=== PATIENT | female | born 1975 | race Caucasian/White ===

== ENCOUNTER 2017-07-08 17:01 | Emergency (ER) | payer OTHER ==
[2017-07-08] MEDS ORDERED: Sodium Chloride 0.9% 1,000 ML IV ONE (17:03)
[2017-07-08] MEDS ORDERED: Famotidine 20 MG/2 ML SDV IVPUSH ONE (17:03)
[2017-07-08] MEDS ORDERED: methylPREDNISolone Sodium Succinate 125 MG/2 ML SDV IVPUSH ONE (17:03)
[2017-07-08] MEDS ORDERED: EPINEPHrine 1 MG/ML SDV IM ONE (17:05)
[2017-07-08] MEDS ORDERED: Albuterol/Ipratropium 3.0-0.5 MG/3 ML Neb Soln NEB ONE (17:05)
[2017-07-08] MEDS ORDERED: EPINEPHrine 1 MG/ML SDV SUBCUT ONE (17:11)
[2017-07-08 17:25] VITALS: BP 129/100
--- NOTE | 2017-07-08 17:56 | EDM.PDOC ---
ED HPI GENERAL MEDICAL PROBLEM - General Chief Complaint: Allergic Reaction Stated Complaint: BEE STING Time Seen by Provider: 07/08/17 17:45 Source of Information: Reports: Patient, EMS History Limitations: Reports: No Limitations - History of Present Illness INITIAL COMMENTS - FREE TEXT/NARRATIVE: Hemalatha is an otherwise healthy 41 year old female who presents to the ED today with c/o sob, throat swelling and full body hives after being stung in the right arm by a bee. Patient has known severe anaphylaxis, she did give herself IM epi prior to EMS arrival. Patient was wheezing on EMS arrival and given another IM epi followed by IV bendaryl, 50 mg. Patient arrives here tremulous, full body hives but reported to be improved from initially. Patient denies on arrival any sob, she is not wheezing, she denies any airway swelling. 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: Social & Family History - Tobacco Use Smoking Status *Q: Never Smoker - Caffeine Use Caffeine Use: Reports: Coffee - Recreational Drug Use Recreational Drug Use: No ED ROS ALLERGIC REACTION - Review of Systems Review Of Systems: See Below Constitutional: Reports: Diaphoresis HEENT: Reports: Throat Swelling Respiratory: Reports: Shortness of Breath Cardiovascular: Reports: No Symptoms Endocrine: Reports: No Symptoms GI/Abdominal: Reports: No Symptoms : Reports: No Symptoms Musculoskeletal: Reports: No Symptoms Skin: Reports: No Symptoms Neurological: Reports: No Symptoms Psychiatric: Reports: Anxiety Immunologic: Reports: Anaphylaxis ED EXAM GENERAL NO PERIP PULSE - Physical Exam Exam: See Below Exam Limited By: No Limitations General Appearance: Alert, Anxious Nose: Normal Inspection Throat/Mouth: Normal Oropharynx, No Airway Compromise Head: Atraumatic, Normocephalic Neck: Normal Inspection, Supple, Non-Tender Respiratory/Chest: Lungs Clear, Normal Breath Sounds, Chest Non-Tender, Other ( tachypneic) Cardiovascular: Normal Peripheral Pulses, Regular Rate, Rhythm, Tachycardia GI/Abdominal: Normal Bowel Sounds Extremities: Normal Inspection Neurological: Alert, Oriented, CN II-XII Intact Psychiatric: Anxious Skin Exam: Warm, Dry, Erythema Lymphatic: No Adenopathy Course - Vital Signs Last Recorded V/S: Last Vital Signs Temp 36.8 C 07/08/17 17:01 Pulse 97 07/08/17 17:20 Resp 26 H 07/08/17 17:20 BP 129/100 H 07/08/17 17:20 Pulse Ox 94 L 07/08/17 17:20 Hemalatha is an otherwise healthy 41 year old female who presents with anaphylaxis secondary to bee sting. Patient shortly after arrival here received an additional subcutaneous epi here after reporting her throat started to feel swollen again, she also c/o mild sob. Patient was given IV solumedrol and IV pepcid on arrival. Patient was also given a Duoneb. She did not have any wheezing at the time. Patient again started to c/o tongue tingling and swelling, epi drip initated at 1740 at 5 mcg/min. We are out of ICU beds here, patient requested [facility], they are full as well. [facility] accepted patient, Dr. Berumen. She will be transferred to their ICU #4 via ALS in stable condition with epi drip infusing, at this time, vital signs are stable, she is normotensive, heart rate right around 100 BPM. she is not hypoxic, o2 sats on room air 97%. - Orders/Labs/Meds Orders: Active Orders 24 hr Category Date Time Status Cardiac Monitoring [RC] .As Directed Care 07/08/17 17:04 Active Overnight Pulse Oximetry [RC] Click to Edit Care 07/08/17 17:04 Active RT Aerosol Therapy [RC] ASDIRECTED Care 07/08/17 17:06 Active BASIC METABOLIC PANEL,BMP [CHEM] Stat Lab 07/08/17 17:39 Ordered CBC WITH AUTO DIFF [HEME] Stat Lab 07/08/17 17:39 Ordered EPINEPHrine [Adrenalin 1:1000] 4 mg Med 07/08/17 17:15 Active Sodium Chloride 0.9% [Normal Saline] 250 ml IV TITRATE Sodium Chloride 0.9% [Normal Saline] 1,000 ml Med 07/08/17 17:03 Active IV .BOLUS Pulse Oximetry Continuous Monitoring [OM.PC] Routine Oth 07/08/17 17:04 Ordered Medication Orders Sodium Chloride (Normal Saline) 1,000 mls @ 999 mls/hr IV .BOLUS ONE Stop: 07/08/17 18:03 Last Admin: 07/08/17 17:09 Dose: 999 mls/hr Epinephrine HCl 4 mg/ Sodium (Chloride) 254 mls @ 7.62 mls/hr IV TITRATE MEREDITH; 2 MCG/MIN PRN Reason: Protocol Last Admin: 07/08/17 17:30 Dose: 5 mcg/min, 19.05 mls/hr Meds: Medications Generic Name Dose Route Start Last Admin Trade Name Freq PRN Reason Stop Dose Admin Sodium Chloride 1,000 mls @ 999 mls/hr 07/08/17 17:03 07/08/17 17:09 Normal Saline IV 07/08/17 18:03 999 mls/hr .BOLUS ONE Administration Epinephrine HCl 4 mg/ Sodium 254 mls @ 7.62 mls/hr 07/08/17 17:15 07/08/17 17 :30 Chloride IV 5 mcg/min TITRATE MEREDITH 19.05 mls/hr Protocol Administration 2 MCG/MIN Discontinued Medications Generic Name Dose Route Start Last Admin Trade Name Freq PRN Reason Stop Dose Admin Albuterol/Ipratropium 3 ml 07/08/17 17:05 07/08/17 17:12 Duoneb 3.0-0.5 Mg/3 Ml NEB 07/08/17 17:06 3 ml ONETIME ONE Administration Epinephrine HCl 0.5 mg 07/08/17 17:05 Adrenalin 1:1000 IM 07/08/17 17:06 ONETIME ONE Epinephrine HCl 0.3 mg 07/08/17 17:11 07/08/17 17:18 Adrenalin 1:1000 SUBCUT 07/08/17 17:12 0.3 mg ONETIME ONE Administration Famotidine 20 mg 07/08/17 17:03 07/08/17 17:17 Pepcid IVPUSH 07/08/17 17:04 20 mg ONETIME ONE Administration Methylprednisolone Sodium Succinate 125 mg 07/08/17 17:03 07/08/17 17:09 Solu-Medrol IVPUSH 07/08/17 17:04 125 mg ONETIME ONE Administration Departure - Departure Time of Disposition: 18:15 Disposition: DC/Tfer to Acute Hospital 02 Condition: Good Clinical Impression: Anaphylactic reaction Qualifiers: Encounter type: initial encounter Qualified Code(s): T78.2XXA - Anaphylactic shock, unspecified, initial encounter - Discharge Information Forms: ED Department Discharge - My Orders Last 24 Hours: My Active Orders 07/08/17 17:03 Sodium Chloride 0.9% [Normal Saline] 1,000 ml IV .BOLUS 07/08/17 17:04 Cardiac Monitoring [RC] .As Directed Overnight Pulse Oximetry [RC] Click to Edit Pulse Oximetry Continuous Monitoring [OM.PC] Routine 07/08/17 17:06 RT Aerosol Therapy [RC] ASDIRECTED 07/08/17 17:15 EPINEPHrine [Adrenalin 1:1000] 4 mg Sodium Chloride 0.9% [Normal Saline] 250 ml IV TITRATE 07/08/17 17:39 BASIC METABOLIC PANEL,BMP [CHEM] Stat CBC WITH AUTO DIFF [HEME] Stat - Assessment/Plan Last 24 Hours: My Active Orders 07/08/17 17:03 Sodium Chloride 0.9% [Normal Saline] 1,000 ml IV .BOLUS 07/08/17 17:04 Cardiac Monitoring [RC] .As Directed Overnight Pulse Oximetry [RC] Click to Edit Pulse Oximetry Continuous Monitoring [OM.PC] Routine 07/08/17 17:06 RT Aerosol Therapy [RC] ASDIRECTED 07/08/17 17:15 EPINEPHrine [Adrenalin 1:1000] 4 mg Sodium Chloride 0.9% [Normal Saline] 250 ml IV TITRATE 07/08/17 17:39 BASIC METABOLIC PANEL,BMP [CHEM] Stat CBC WITH AUTO DIFF [HEME] Stat
== END 2017-07-08 17:30 ==
LOC: EDBD 17:01 → MERGE 17:01 → JP.ED 17:01
DX: T78.2XXA Anaphylactic shock, unspecified, initial encounter (principal); Z88.6 Allergy status to analgesic agent
CPT/HCPCS: 36415; 80048; 85025; 96374; 96375; 99285; J0171; J2930; J7040; J7050; J7620; S0028